=== PATIENT | female | born 1970 | race Caucasian/White ===

== ENCOUNTER 2022-05-07 14:53 | Outpatient (CLI) | payer OTHER, SELFPAY ==
--- NOTE | 2022-05-07 15:08 | ECG_ITS ---
Measurements Intervals [place] Rate: 74 P: 68 CO: 135 QRS: 77 QRSD: 109 T: 61 QT: 343 QTc: 382 Interpretive Statements SINUS RHYTHM POSSIBLE LEFT ATRIAL ENLARGEMENT DELAYED PRECORDIAL R/S TRANSITION NONSPECIFIC ST & T-WAVE ABNORMALITY- INFERIOR LEADS BASELINE ARTIFACT- I, II, III, AVR, AVL, AVF, V1 BORDERLINE ECG NO PREVIOUS ECG AVAILABLE FOR COMPARISON Electronically Signed On 05-07-2022 21:28:23 CDT by Damaso Mendieta D.O.
[2022-05-07 15:23] LABS: Hematocrit 40.5 % (37.0-47.0)
[2022-05-07 15:35] LABS: Anion Gap 12 mmol/L (8-16); Blood Urea Nitrogen 14 mg/dL (7-17); Calcium 9.1 mg/dL (8.4-10.2); Carbon Dioxide 28 mmol/L (22-30); Chloride 103 mmol/L (98-107); Estimated Glomerular Filt Rate > 60; Glucose 126 mg/dL (65-110); Potassium 3.6 mmol/L (3.4-5.0); Sodium 143 mmol/L (137-145)
== END 2022-05-07 14:54 | disposition home or self-care (01) ==
LOC: ANHSURGERY 15:05
PROVIDERS: Anesthesiology; PCP Family Medicine; Visit Provider Surgery Plastic and Reconstructive Surgery
DX: Z41.1 Encounter for cosmetic surgery (principal); I10 Essential (primary) hypertension; Z79.899 Other long term (current) drug therapy; R94.31 Abnormal electrocardiogram [ECG] [EKG]
CPT/HCPCS: 36415; 80048; 85014; 85018; 93005

== ENCOUNTER 2022-05-13 00:35 | Day surgery (SDC) | payer OTHER, SELFPAY ==
[2022-05-06 14:56] VITALS: BMI 21.5
--- NOTE | 2022-05-06 15:10 | PC.NURSE ---
Report to the Outpatient Waiting Room, entrance under the green pavilion located off [facility], at time 8:30 on date 05/13/22. OR Time: 10:30. Time changes happen often and if your time is changed the preop area will call you the afternoon before. - You and your visitor will be asked to self-screen and do not enter if you have any COVID symptoms. - Only one visitor and NO children visitors are allowed at this time. - The patient visitor is requested to leave or wait in car when not with patient due to restrictions. - A mask is required within the hospital. Patients may have clear liquids (water, carbonated beverages, clear teas, apple juice) until 3 hours prior to surgery (7:30) with a maximum of 20 ounces. - No food from midnight until time of surgery Take the following medications with a SIP of water the morning of surgery: NONE Medications to discontinue per physician: VITAMINS/SUPPLEMENTS Date to take last dose: 05/09/22 Please no make-up, nail georgian, hairspray, perfume, deodorant, or body powder the day of surgery. No jewelry (including any body piercings) or valuables the day of surgery, leave them at home. Please take a shower or bath the night before, or the morning of, surgery with an antibacterial soap. Wear comfortable, loose fitting clothing. - Jewelry must be removed prior to entering the operating room. Rings and piercings that are not removed may be cut off. - The hospital will not accept responsibility for valuables. - Please leave all valuables, including medications, at home the day of surgery. If you are going home after surgery, a licensed commercial collections driver must drive you home. - NO public transportation without another adult. - We recommend that an adult stay with you for 24 hours following discharge. - We also recommend that you do not drive, make important decision, drink alcoholic beverages, or take any drugs that were not prescribed by your health care provider for at least 24 hours after your discharge time. Follow any additional instructions given to you from your surgeon. If you or anyone in your household have experienced Covid symptoms in the past week, please notify your surgeon or the nurse liaison at the phone number below for possible testing. Telephone instructions given to PT - DANIELA DRAPER and asked if any additional questions and then verbalized understanding. Patient advised to call surgeon office or pre surgery nurse liaison [phone] if any additional questions.
[2022-05-13] VITALS (9 sets, daily range): BP systolic 109–132; BP diastolic 47–89; PULSE 83–100; RESP 13–20; TEMP 36.5–37.6; O2SAT 93–100
[2022-05-13 08:38] LABS: Urine Cotinine NEGATIVE
[2022-05-13] MEDS: LACTATED RINGERS 1,000 ML 30 ML IV CONT ×2 (08:43→16:26)
--- NOTE | 2022-05-13 09:35 | WPDANESEPPF ---
Anes - Initial Pre Proc Eval Procedure: Operation Date: 05/13/22 10:30 Proposed Procedures p Bilateral Breast Augmentation with Mastopexy, - Asael Singer MD s Neck Lift - Asael Singer MD Date/Time: 05/13/22 09:35 Surgeon: Asael Singer MD Pre Op Diagnosis: skin laxity Patient Data Age: 52 Gender: F Height: 1.78 m Weight: 67.5 kg Last Vital Signs Temp 36.5 C 05/13/22 08:57 Pulse 83 05/13/22 08:57 Resp 18 05/13/22 08:57 BP 132/89 05/13/22 08:57 Pulse Ox 99 05/13/22 08:57 O2 Del Method Room Air 05/13/22 08:57 Allergies Allergy/AdvReac Type Severity Reaction Status Date / Time No Known Allergies Allergy Unverified 05/13/22 08:49 Home Medications Medication Instructions Recorded Confirmed Type plecanatide 3 mg tablet (Trulance) 3 mg PO DAILY 03/09/22 05/13/22 History carisoprodol 350 mg tablet (Soma) 350 mg PO TID PRN muscle pain #21 04/21/22 05/13/22 Rx tabs docusate sodium 100 mg capsule 100 mg PO DAILY #14 caps 04/21/22 05/13/22 Rx (Colace) ondansetron 4 mg disintegrating 4 mg PO Q8H #21 tabs 04/21/22 05/13/22 Rx tablet oxycodone-acetaminophen 5 mg-325 1 tablet PO Q6H PRN pain #30 tabs 04/21/22 05/13/22 Rx mg tablet (Percocet) cholecalciferol (vitamin D3) 125 125 mcg PO DAILY 05/06/22 05/13/22 History mcg (5,000 unit) tablet (Vitamin D3) irbesartan 150 1 tablet PO DAILY 05/06/22 05/13/22 History mg-hydrochlorothiazide 12.5 mg tablet multivitamin 1 tablet PO DAILY 05/06/22 05/13/22 History Laboratory Tests 05/13/22 08:23 Cotinine Negative Patient hx anesthesia problems: none Family hx anesthesia problems: none Results Review: All pre-operative results and documents have been reviewed as part of the pre-operative evaluation. [facility] Surgical History Surgical History (Updated 05/13/22 @ 09:41 by Darren Pino MD) H/O: hysterectomy History of Social History Social History Smoking status: Never smoker Alcohol intake: never Substance use: never Substance use type: does not use Living arrangements: with family Spiritual care concerns: No Anes - Eval Final PreProcedure Day of Procedure 05/13/22 09:35 Patient weight: normal Heart: regular rate and rhythm Lungs: clear to auscultation Airway: Mallampati scale class II Neurological: alert and oriented Last oral intake: >/= 8 hours ASA classification: II Emergent: no Anesthetic plan: proceed Anesthesia type and monitoring: general ETT and standard monitoring Results Review: All pre-operative results and documents have been reviewed as part of the pre-operative evaluation. Informed Consent: The patient's anesthetic plan and its attendant risks and benefits were discussed with the patient/family/POA. Questions were solicited and answers provided to the satisfaction of the patient/family/POA.
--- NOTE | 2022-05-13 10:58 | WPDHPUPDATE1 ---
History and Physical Update Update Date/Time: 05/13/22 10:58 History and Physical has been reviewed, including an updated exam of the patient. There are NO changes in the patient's condition. Risks, benefits, and alternatives have been discussed and questions answered. Patient agrees to proceed with procedure.
--- NOTE | 2022-05-13 11:01 | W.PM.PROC2 ---
Procedure Note - Detailed Date of Procedure 05/13/22 Pre-op Diagnosis skin laxity Post-op Diagnosis Same Procedure Performed 1. Bilateral Augmentation Mastopexy 2. Cervicoplasty Surgeon Asael Singer MD Anesthesia General Findings Mastopexy inverted t superior pedicle Bilateral Silas Dawson SoftTouch implants 350cc Right - REF# [id number] SN [id number] Left - REF# [id number] SN [id number] Description of Procedure She is here today for bilateral breast augmentation mastopexy and cervicoplasty. Previously and again today the risks, benefits, alternatives were discussed in extensive detail. I wanted her to be very realistic about the risks involved as well as expectations. We discussed aftercare and what to monitor for. Made sure answered all of her questions to her satisfaction today and consent was obtained. Marked in the preoperative holding area with their verification. The patient was taken to the operating room placed supine on the operating table. Anesthesia was provided by anesthesiology. A surgical time-out was taken. We cleansed the skin and 1% lidocaine and 0.25% Marcaine with epinephrine was used anesthetize as a field block. She was prepped and draped in a standard sterile fashion. Breast Tegaderm nipple [place] were placed. A 15 blade used to make an incision just superior to the inframammary fold leaving a cusp of de-epithelized tissue at the t junction. Dissection was continued until the chest wall as identified. I incised the pectoralis major along its inferior border and completely released the inferior border leaving the medial border intact. I created a subpectoral pocket in the appropriate dimensions based on our preoperative planning for the implant. I then copiously irrigated with saline solution and verified a strict hemostasis. Next the use a triple antibiotic and Betadine containing solution to irrigate the pocket. I washed my gloves with the triple antibiotic and Betadine solution. We washed the implant immediately upon opening it with this solution and only opened it when we needed it. I used implant funnel and no-touch technique. The implant was introduced into the pocket using the funnel. Having verified positioning of the implant this was closed using 2-0 Vicryl. I tailor tacked the breast into position. Placed her in a sitting position. Verified the nipple-areolar location based on preoperative planning as well as intraoperative observations and measurements in full agreement. She was placed supine. I de-epithelialized the pedicle. I then removed the inferior central portion of the breast need making sure the implant was well protected. I elevated medial and lateral tissue flaps as well for planned closure. I closed along the IMF with 2-0 Stratafix. Along the vertical with 2-0 PDS. I closed around the [place] with 3-0 strata fix. 3-0 Monocryl along the vertical. 3-0 Stratafix along the IMF. I finally closed everything with running subcuticular 4-0 Monocryl and tissue glue. Neck Local anesthesia was provided with a tumescent solution using lidocaine, epinephrine, and TXA. Once adequate time for effect a fifteen blade used to make a submental incision. Dissection was continued down identified platysma muscle. Elevated skin flaps with good adiposity of the deep surface throughout the neck. Excess preplatysmal fat was removed. I then went sub platysmal and deep fat of the small portion. Care was taken to make sure there was a good smooth contour under the submental area. There really was minimal protrusion of the submandibular glands noted. Platysma muscle and imbricated as with vertical mattress sutures using 2-0 Vicryl in multiple layers. Also completed inferior platysmal release with no evidence of neurovascular or other structure injury. I then proceeded made the remainder of the incisions. I elevated skin flaps with good adequate adiposity of the deep surface to have good contour. Thi
[2022-05-13] MEDS: ceFAZolin 2 GM/D5W 50 ML 2 GM/50 ML BAG IVPB (11:12)
[2022-05-13] MEDS: NACL 0.9% IRRIG POUR BOTTLE 900 ML, GENTAMICIN SULFATE INJ 160 MG, ceFAZolin 2 GM, POVI... IRRIGATION (12:02)
[2022-05-13] MEDS: BUPIVACAINE HCL 0.25% PF 30 ML VIAL INFILTRATE (12:04)
[2022-05-13] MEDS: LIDO 1%/EPINEPHRINE 1:100,000 10 ML VIAL 30 ML INFILTRATE (12:05)
--- NOTE | 2022-05-13 13:53 | SUR.OPER ---
1340 - Patient re-draped and prepped for neck procedure. Both arms tucked at side. Betadine paint to entire face and neck - prep into hairline - eyes rinsed with BSS after. Dr. Singer present.
[2022-05-13] MEDS: fentaNYL CITRATE INJ (*CRX) 100 MCG/2 ML VIAL 25 MCG IV PUSH ×2 (17:04→17:13)
== END 2022-05-13 18:35 | disposition home or self-care (01) ==
PROVIDERS: PCP Family Medicine; Visit Provider Surgery Plastic and Reconstructive Surgery
PROC: (CPT 19316; principal; 2022-05-13 10:30)
PROC: (CPT 15819; 2022-05-13 10:30)
DX: Z41.1 Encounter for cosmetic surgery (principal); L57.4 Cutis laxa senilis; Z79.899 Other long term (current) drug therapy
CPT/HCPCS: 19316; 19325; 15819; 80307; J0171; J0690; J1100; J1170; J1580; J2250; J2405; J2704; J2710; J3010; J7030; J7120; L8000